=== PATIENT | female | born 1985 | race Hispanic/Latino ===

== ENCOUNTER 2020-10-02 17:38 | Emergency (ER) | payer SELFPAY ==
[2020-10-02] MEDS ORDERED: ORPHENADRINE CITRATE 30 MG/ML ML ONE (18:13)
[2020-10-02] MEDS ORDERED: KETOROLAC TROMETHAMINE 30MG/ML ONE (18:14)
== END 2020-10-02 18:45 | disposition home or self-care (01) ==
LOC: EDH 17:38
DX: S29.012A Strain of muscle and tendon of back wall of thorax, initial encounter (principal); V49.49XA Driver injured in collision with other motor vehicles in traffic accident, initial encounter; Y93.I9 Activity, other involving external motion; Y92.89 Other specified places as the place of occurrence of the external cause; Y99.8 Other external cause status
CPT/HCPCS: 96372 ×2; 99284; J1885; J2360